=== PATIENT | female | born 1945 | race Caucasian/White ===

== ENCOUNTER 2020-03-04 12:23 | Inpatient (IN) | payer OTHER ==
[~2020-03-04] VITALS: Ht 160 cm; Wt 80.4 kg
[2020-03-04 13:45] LABS: Basophils # (auto) 0 10 ^3/uL (0-0.2); Basophils % (auto) 0.1 % (0.0-2.0); Eosinophils # (auto) 0 10 ^3/uL (0-0.8); Eosinophils % (auto) 0.2 % (0.0-7.0); Hematocrit 38.9 % (36.0-46.0); Hemoglobin 13.4 g/dL (12.2-16.2); Lymphocytes # (auto) 0.5 10 ^3/uL (0.4-5.4); Lymphocytes % (auto) 4.5 % (10.0-50.0); Mean Corpuscular Hemoglobin 30.9 pg (28.0-32.0); Mean Corpuscular Hgb Conc. 34.4 g/dL (32.0-36.0); Mean Corpuscular Volume 89.8 fL (80.0-100.0); Monocytes # (auto) 0.5 10 ^3/uL (0-1.3); Neutrophils # (auto) 11.1 10 ^3/uL (1.6-8.6); Neutrophils % (auto) 91.2 % (37.0-80.0); Nucleated Red Blood Cells % 0.1 %; Platelet Count (auto) 407 10^3/uL (140-450); Red Blood Cells 4.33 10^6/uL (4.0-5.20); Red Cell Distribution Width 14.5 % (11.8-14.3); White Blood Cell 12.1 10^3/uL (4.4-10.8)
[2020-03-04 13:59] LABS: Albumin 2.2 g/dL (3.4-5.0); Anion Gap 5 (5-15); Blood Urea Nitrogen 19 mg/dL (7-18); Calcium 8.5 mg/dL (8.5-10.1); Carbon Dioxide 25 mmol/L (21-32); Chloride 104 mmol/L (98-107); Glucose 137 mg/dL (74-106); Potassium 3.6 mmol/L (3.5-5.1); Sodium 134 mmol/L (136-145)
[2020-03-04 14:04] LABS: Alanine Aminotransferase 32 U/L (13-56); Alkaline Phosphatase 148 U/L (45-117); Aspartate Aminotransferase 37 U/L (15-37); BUN/Creatinine Ratio 20.9; Bilirubin, Total 0.8 mg/dL (0.2-1.0); GFR African American 78 mL/min; GFR Non-African American 65 mL/min; Total Protein 7.6 g/dL (6.4-8.2)
[2020-03-04 14:12] LABS: INR 1.13 (0.9-1.15); Partial Thromboplastin Time 28.3 sec (23.0-31.2)
[2020-03-04] MEDS ORDERED: DexAMETHasone SOD PHOS 10MG/1ML VIAL INJ IV ONE (14:45)
[2020-03-04] MEDS ORDERED: ASCORBIC ACID 500 MG TAB PO ONE (14:45)
[2020-03-04] MEDS ORDERED: ZINC SULFATE 220mg CAP or TAB PO ONE (14:45)
[2020-03-04] MEDS ORDERED: AZITHROMYCIN 500MG/ 250ML 250 ML IV ONE (14:45)
[2020-03-04] MEDS ORDERED: MORPHINE SULF INJ 2 MG/ML SYRINGE 1ML IV PRN ×2 (15:15→15:45)
[2020-03-04] MEDS ORDERED: NITROGLYCERIN 0.4 MG SL TAB SL PRN (15:15)
[2020-03-04] MEDS ORDERED: TEMAZEPAM 15 MG CAP PO PRN (15:45)
[2020-03-04] MEDS ORDERED: traMADol HCL 50 MG TAB PO PRN (15:45)
[2020-03-04] MEDS ORDERED: DEXTROSE (50%) 50ML SYRG IV PRN (15:45)
[2020-03-04] MEDS ORDERED: LACTULOSE 20Gm/30ML SOLN PO PRN (15:45)
[2020-03-04] MEDS ORDERED: ACETAMINOPHEN 500 MG TAB PO PRN (15:45)
[2020-03-04] MEDS ORDERED: ONDANSETRON HCL 4 MG/2 ML VIAL IV PRN (15:45)
[2020-03-04] MEDS: ACCU-CHEK COMFORT CURVE STRIP VI SCH ×2 (17:01→22:02)
[2020-03-04] MEDS: BUDESONIDE (INHALATION) 180 MCG IH IN SCH (20:40)
[2020-03-04] MEDS: ENOXAPARIN SOD 40 MG/0.4 ML SYRINGE SC SCH (22:01)
[2020-03-04] MEDS: FAMOTIDINE 20 MG TAB PO SCH (22:02)
[2020-03-05] MEDS ORDERED: LABETALOL HCL 5 MG/ML 4ML SYRINGE IV ONE (02:30)
[2020-03-05 06:23] LABS: Albumin 2.1 g/dL (3.4-5.0); Calcium 8.6 mg/dL (8.5-10.1); Potassium 3.7 mmol/L (3.5-5.1)
[2020-03-05 06:24] LABS: Basophils # (auto) 0 10 ^3/uL (0-0.2); Eosinophils # (auto) 0 10 ^3/uL (0-0.8); Hematocrit 36.1 % (36.0-46.0); Hemoglobin 12.9 g/dL (12.2-16.2); Lymphocytes # (auto) 0.4 10 ^3/uL (0.4-5.4); Lymphocytes % (auto) 5.2 % (10.0-50.0); Mean Corpuscular Hemoglobin 32.4 pg (28.0-32.0); Mean Corpuscular Hgb Conc. 35.8 g/dL (32.0-36.0); Mean Corpuscular Volume 90.3 fL (80.0-100.0); Monocytes # (auto) 0.3 10 ^3/uL (0-1.3); Monocytes % (auto) 3.8 % (0.0-12.0); Neutrophils # (auto) 6.8 10 ^3/uL (1.6-8.6); Nucleated Red Blood Cells % 0.1 %; Platelet Count (auto) 395 10^3/uL (140-450); Red Blood Cells 3.99 10^6/uL (4.0-5.20); White Blood Cell 7.5 10^3/uL (4.4-10.8)
[2020-03-05 06:28] LABS: BUN/Creatinine Ratio 31.5; Bilirubin, Total 0.8 mg/dL (0.2-1.0); Total Protein 7.1 g/dL (6.4-8.2)
[2020-03-05] MEDS: ACCU-CHEK COMFORT CURVE STRIP VI SCH ×4 (07:00→22:04)
[2020-03-05] MEDS ORDERED: cloNIDine HCL 0.1 MG TAB PO ONE (07:15)
[2020-03-05] MEDS: BUDESONIDE (INHALATION) 180 MCG IH IN SCH ×2 (08:08→19:36)
[2020-03-05] MEDS ORDERED: IVERMECTIN 3 MG TAB PO ONE (10:00)
[2020-03-05] MEDS: DexAMETHasone SOD PHOS 10MG/1ML VIAL INJ IV SCH (11:10)
[2020-03-05] MEDS: FAMOTIDINE 20 MG TAB PO SCH ×2 (11:11→21:43)
[2020-03-05] MEDS: levoFLOXacin 500MG 100 ML IV SCH (11:11)
[2020-03-05] MEDS: ENOXAPARIN SOD 40 MG/0.4 ML SYRINGE SC SCH ×2 (11:11→21:44)
[2020-03-05] MEDS: ZINC SULFATE 220mg CAP or TAB PO SCH (11:11)
[2020-03-05] MEDS: CHOLECALCIFEROL (VITD3) 2,000 UNIT CAP/TAB PO SCH (11:11)
[2020-03-05] MEDS: ASCORBIC ACID 1,000 MG TAB PO SCH (11:11)
[2020-03-05] MEDS ORDERED: REMDESIVIR PER PHARMACY 0 ML IV SCH (12:30)
[2020-03-05] MEDS ORDERED: REMDESIVIR 200 MG in NS 210ml LOADING DOSE ADULT IV ONE (15:00)
[2020-03-05 18:29] VITALS: BP 151/82
[2020-03-05] MEDS: ALBUTEROL SULF HFA 90MCG INH 200DOSE IN PRN (19:36)
[2020-03-06] VITALS: BP 159/86
[2020-03-06 06:08] LABS: BUN/Creatinine Ratio 34.2; Calcium 9.1 mg/dL (8.5-10.1); Potassium 4.2 mmol/L (3.5-5.1)
[2020-03-06 06:11] LABS: Bilirubin, Total 0.3 mg/dL (0.2-1.0); Total Protein 6.7 g/dL (6.4-8.2)
[2020-03-06] MEDS: ACCU-CHEK COMFORT CURVE STRIP VI SCH ×4 (06:48→22:00)
[2020-03-06] MEDS: BUDESONIDE (INHALATION) 180 MCG IH IN SCH ×2 (07:33→22:00)
[2020-03-06] MEDS: ALBUTEROL SULF HFA 90MCG INH 200DOSE IN PRN ×2 (07:33→22:31)
[2020-03-06 08:00] VITALS: BP 164/92
[2020-03-06] MEDS: ZINC SULFATE 220mg CAP or TAB PO SCH (09:47)
[2020-03-06] MEDS: levoFLOXacin 500MG 100 ML IV SCH (09:47)
[2020-03-06] MEDS: DexAMETHasone SOD PHOS 10MG/1ML VIAL INJ IV SCH (09:47)
[2020-03-06] MEDS: ASCORBIC ACID 1,000 MG TAB PO SCH (09:48)
[2020-03-06] MEDS: FAMOTIDINE 20 MG TAB PO SCH ×2 (09:48→21:52)
[2020-03-06] MEDS: CHOLECALCIFEROL (VITD3) 2,000 UNIT CAP/TAB PO SCH (09:48)
[2020-03-06] MEDS: ENOXAPARIN SOD 40 MG/0.4 ML SYRINGE SC SCH ×2 (09:48→21:52)
[2020-03-06 16:00] VITALS: BP 148/71
[2020-03-06] MEDS: REMDESIVIR 100mg 100 MG in SODIUM CHL 0.9% 230 ML IV SCH (16:06)
[2020-03-07] VITALS: BP 160/98
[2020-03-07] MEDS: ACCU-CHEK COMFORT CURVE STRIP VI SCH ×4 (06:46→21:38)
[2020-03-07] MEDS: BUDESONIDE (INHALATION) 180 MCG IH IN SCH ×2 (06:50→20:42)
[2020-03-07 08:00] VITALS: BP 160/89
[2020-03-07 08:08] LABS: Anion Gap 4 (5-15); Blood Urea Nitrogen 31 mg/dL (7-18); Carbon Dioxide 25 mmol/L (21-32); Chloride 110 mmol/L (98-107); Glucose 104 mg/dL (74-106); Potassium 4.1 mmol/L (3.5-5.1); Sodium 139 mmol/L (136-145)
[2020-03-07 08:09] LABS: Alanine Aminotransferase 33 U/L (13-56); Alkaline Phosphatase 117 U/L (45-117); Aspartate Aminotransferase 19 U/L (15-37); BUN/Creatinine Ratio 42.5; Bilirubin, Total 0.3 mg/dL (0.2-1.0); Calcium 8.4 mg/dL (8.5-10.1); GFR African American 101 mL/min; GFR Non-African American 83 mL/min; Total Protein 6.6 g/dL (6.4-8.2)
[2020-03-07] MEDS: DexAMETHasone SOD PHOS 10MG/1ML VIAL INJ IV SCH (09:28)
[2020-03-07] MEDS: ASCORBIC ACID 1,000 MG TAB PO SCH (09:29)
[2020-03-07] MEDS: levoFLOXacin 500MG 100 ML IV SCH (09:29)
[2020-03-07] MEDS: ZINC SULFATE 220mg CAP or TAB PO SCH (09:29)
[2020-03-07] MEDS: FAMOTIDINE 20 MG TAB PO SCH ×2 (09:29→21:38)
[2020-03-07] MEDS: CHOLECALCIFEROL (VITD3) 2,000 UNIT CAP/TAB PO SCH (09:30)
[2020-03-07] MEDS: ENOXAPARIN SOD 40 MG/0.4 ML SYRINGE SC SCH ×2 (09:30→21:38)
[2020-03-07] MEDS: REMDESIVIR 100mg 100 MG in SODIUM CHL 0.9% 230 ML IV SCH (15:20)
[2020-03-07 16:00] VITALS: BP 154/95
[2020-03-07] MEDS: ALBUTEROL SULF HFA 90MCG INH 200DOSE IN PRN (20:43)
[2020-03-08] VITALS: BP 147/82
[2020-03-08 06:04] LABS: Hematocrit 40.6 % (36.0-46.0); Hemoglobin 13.9 g/dL (12.2-16.2); Mean Corpuscular Hemoglobin 30.9 pg (28.0-32.0); Mean Corpuscular Hgb Conc. 34.2 g/dL (32.0-36.0); Mean Corpuscular Volume 90.4 fL (80.0-100.0); Platelet Count (auto) 382 10^3/uL (140-450); Red Blood Cells 4.49 10^6/uL (4.0-5.20); Red Cell Distribution Width 14.5 % (11.8-14.3); White Blood Cell 10.4 10^3/uL (4.4-10.8)
[2020-03-08] MEDS: ACCU-CHEK COMFORT CURVE STRIP VI SCH ×4 (06:20→21:44)
[2020-03-08 06:40] LABS: Albumin 2.1 g/dL (3.4-5.0); Calcium 8.7 mg/dL (8.5-10.1); Magnesium 2.2 mg/dL (1.6-2.6); Potassium 4.2 mmol/L (3.5-5.1)
[2020-03-08 06:42] LABS: Bilirubin, Total 0.3 mg/dL (0.2-1.0); Total Protein 6.4 g/dL (6.4-8.2)
[2020-03-08 06:45] LABS: Basophils % (manual) 0 (0.0-2.0); Blast Cells 0; Eosinophils % (manual) 0 (0-7); Myelocytes % 0; Promyelocytes % 0; Reactive Lymphocytes 0
[2020-03-08] MEDS: ALBUTEROL SULF HFA 90MCG INH 200DOSE IN PRN ×2 (07:39→18:59)
[2020-03-08] MEDS: BUDESONIDE (INHALATION) 180 MCG IH IN SCH ×2 (07:39→18:59)
[2020-03-08 08:00] VITALS: BP 166/100
[2020-03-08 08:13] LABS: Band Neutrophils % (manual) 7; Lymphocytes % (manual) 9 (10.0-50.0); Metamyelocytes % 1; Monocytes % (manual) 10 (0-12)
[2020-03-08] MEDS: ASCORBIC ACID 1,000 MG TAB PO SCH (09:34)
[2020-03-08] MEDS: levoFLOXacin 500MG 100 ML IV SCH (09:34)
[2020-03-08] MEDS: FAMOTIDINE 20 MG TAB PO SCH ×2 (09:34→21:43)
[2020-03-08] MEDS: ENOXAPARIN SOD 40 MG/0.4 ML SYRINGE SC SCH ×2 (09:34→21:44)
[2020-03-08] MEDS: ZINC SULFATE 220mg CAP or TAB PO SCH (09:34)
[2020-03-08] MEDS: DexAMETHasone SOD PHOS 10MG/1ML VIAL INJ IV SCH (09:34)
[2020-03-08] MEDS: CHOLECALCIFEROL (VITD3) 2,000 UNIT CAP/TAB PO SCH (09:34)
[2020-03-08] MEDS ORDERED: LISINOPRIL 10 MG TAB PO ONE (15:00)
[2020-03-08] MEDS: REMDESIVIR 100mg 100 MG in SODIUM CHL 0.9% 230 ML IV SCH (15:16)
[2020-03-08 16:00] VITALS: BP 166/104
[2020-03-08] MEDS ORDERED: hydrALAZINE HCL 20 MG/ML VL IV PRN (18:00)
[2020-03-08 20:22] VITALS: BP 133/84
[2020-03-08 23:52] VITALS: BP 157/94
[2020-03-09] MEDS: ACCU-CHEK COMFORT CURVE STRIP VI SCH ×3 (06:43→17:10)
[2020-03-09 08:00] VITALS: BP 147/93
[2020-03-09] MEDS: ALBUTEROL SULF HFA 90MCG INH 200DOSE IN PRN ×2 (08:04→20:51)
[2020-03-09] MEDS: BUDESONIDE (INHALATION) 180 MCG IH IN SCH ×2 (08:04→19:34)
[2020-03-09 08:13] LABS: Hematocrit 38.7 % (36.0-46.0); Hemoglobin 13.4 g/dL (12.2-16.2); Mean Corpuscular Hemoglobin 31.2 pg (28.0-32.0); Mean Corpuscular Hgb Conc. 34.7 g/dL (32.0-36.0); Mean Corpuscular Volume 89.9 fL (80.0-100.0); Platelet Count (auto) 290 10^3/uL (140-450); Red Cell Distribution Width 14.5 % (11.8-14.3)
[2020-03-09 08:23] LABS: BUN/Creatinine Ratio 42.2; Bilirubin, Total 0.3 mg/dL (0.2-1.0); Calcium 8.6 mg/dL (8.5-10.1); Magnesium 2.4 mg/dL (1.6-2.6); Total Protein 6.4 g/dL (6.4-8.2)
[2020-03-09 08:24] LABS: Basophils % (manual) 0 (0.0-2.0); Blast Cells 0; Metamyelocytes % 0; Myelocytes % 0; Promyelocytes % 0; Reactive Lymphocytes 0
[2020-03-09 09:04] LABS: Band Neutrophils % (manual) 1; Eosinophils % (manual) 1 (0-7); Lymphocytes % (manual) 10 (10.0-50.0); Monocytes % (manual) 15 (0-12)
[2020-03-09] MEDS: ZINC SULFATE 220mg CAP or TAB PO SCH (09:12)
[2020-03-09] MEDS: ASCORBIC ACID 1,000 MG TAB PO SCH (09:13)
[2020-03-09] MEDS: CHOLECALCIFEROL (VITD3) 2,000 UNIT CAP/TAB PO SCH (09:13)
[2020-03-09] MEDS: levoFLOXacin 500MG 100 ML IV SCH (09:14)
[2020-03-09] MEDS: ENOXAPARIN SOD 40 MG/0.4 ML SYRINGE SC SCH (09:14)
[2020-03-09] MEDS: FAMOTIDINE 20 MG TAB PO SCH (09:20)
[2020-03-09] MEDS: DexAMETHasone SOD PHOS 10MG/1ML VIAL INJ IV SCH (09:20)
[2020-03-09] MEDS ORDERED: LISINOPRIL 10 MG TAB PO SCH (10:00)
[2020-03-09 15:24] VITALS: BP 147/93
[2020-03-09 16:00] VITALS: BP 156/94
[2020-03-09] MEDS: REMDESIVIR 100mg 100 MG in SODIUM CHL 0.9% 230 ML IV SCH (16:28)
== END 2020-03-09 21:20 | disposition home or self-care (01) | DRG 177 ==
LOC: ER 12:23 → TELE 12:24 → TELE-WESTW 03-05 14:35
PROVIDERS: ADMIT Internal Medicine; ATTEND Internal Medicine
PROC: XW033E5 Introduction of Remdesivir Anti-infective into Peripheral Vein, Percutaneous Approach, New Technology Group 5 (ICD-10-PCS; principal; 2020-03-05)
DX: U07.1 COVID-19 (principal); J12.82 Pneumonia due to coronavirus disease 2019; J96.01 Acute respiratory failure with hypoxia; E87.1 Hypo-osmolality and hyponatremia; Z68.41 Body mass index [BMI] 40.0-44.9, adult; J98.11 Atelectasis; E46 Unspecified protein-calorie malnutrition; D72.810 Lymphocytopenia; R73.9 Hyperglycemia, unspecified; I10 Essential (primary) hypertension; E66.01 Morbid (severe) obesity due to excess calories; E78.5 Hyperlipidemia, unspecified; Z82.49 Family history of ischemic heart disease and other diseases of the circulatory system; Z90.710 Acquired absence of both cervix and uterus; E66.3 Overweight
CPT/HCPCS: 36415; 71045; 80053; 82728; 82962; 83036; 83605; 83735; 84484; 85007; 85025; 85027; 85379; 85610; 85730; 87040; 87426; 93005; 94640; 96365; 96375; G0378; J1100; J1956; J3490

== ENCOUNTER 2020-06-16 23:00 | Emergency (ER) | payer OTHER ==
[~2020-06-16] VITALS: Ht 162.6 cm; Wt 79.4 kg
[2020-06-16 23:30] VITALS: BP 175/93
== END 2020-06-17 04:04 | disposition home or self-care (01) ==
LOC: ER 23:00
DX: S63.591A Other specified sprain of right wrist, initial encounter (principal); I10 Essential (primary) hypertension; E78.5 Hyperlipidemia, unspecified; Z90.710 Acquired absence of both cervix and uterus; W01.0XXA Fall on same level from slipping, tripping and stumbling without subsequent striking against object, initial encounter; Y93.89 Activity, other specified; Y92.89 Other specified places as the place of occurrence of the external cause; Y99.8 Other external cause status
CPT/HCPCS: 73110

== ENCOUNTER → 2022-07-03 | Outpatient (CLI) | payer OTHER ==
[2022-07-03 12:23] LABS: Urine Bacteria NONE SEEN /hpf (None Seen); Urine Blood 1+ /uL (Negative); Urine Budding Yeast FEW /hpf (None Seen); Urine Hyaline Cast FEW /lpf (0 - 2); Urine Mucus FEW (None Seen); Urine Specific Gravity 1.019 (1.001-1.035); Urine WBC 880 /hpf (0 - 5); Urine WBC Clumps PRESENT /hpf (None Seen)
[2022-07-03 13:12] LABS: Magnesium 2.5 mg/dL (1.6-2.6); Potassium 4.2 mmol/L (3.5-5.1); Uric Acid 3.6 mg/dL (2.6-6.0)
[2022-07-03 13:19] LABS: Albumin 3.8 g/dL (3.4-5.0); BUN/Creatinine Ratio 15.2 (10.0-20.0); Bilirubin, Total 0.7 mg/dL (0.2-1.0); Calcium 9.5 mg/dL (8.5-10.1); Total Protein 7.6 g/dL (6.4-8.2)
== END | disposition home or self-care (01) ==
LOC: LAB 11:57
PROVIDERS: ATTEND Family Medicine
DX: Z00.00 Encounter for general adult medical examination without abnormal findings (principal); Z13.89 Encounter for screening for other disorder; E78.2 Mixed hyperlipidemia; I10 Essential (primary) hypertension; F32.9 Major depressive disorder, single episode, unspecified; Z68.29 Body mass index [BMI] 29.0-29.9, adult
CPT/HCPCS: 36415; 80053; 80061; 80198; 81001; 82306; 82607; 83036; 83540; 83735; 84550; 87086

== ENCOUNTER → 2022-07-07 | Outpatient (CLI) | payer OTHER | END | disposition home or self-care (01) | LOC: LAB 13:39 | PROVIDERS: ATTEND Family Medicine | DX: Z00.00 Encounter for general adult medical examination without abnormal findings (principal); Z13.89 Encounter for screening for other disorder; E32.9 Disease of thymus, unspecified; E78.2 Mixed hyperlipidemia; I10 Essential (primary) hypertension; Z68.29 Body mass index [BMI] 29.0-29.9, adult | CPT/HCPCS: 82270 ==

== ENCOUNTER 2024-07-14 10:50 | Outpatient (CLI) | payer OTHER ==
[2024-07-14 10:59] LABS: Urine Bacteria None Seen /hpf (None Seen)
[2024-07-14 11:35] LABS: Urine Blood 2+ /uL (Negative); Urine Clarity Turbid (Clear); Urine Color Light-Yellow (Yellow); Urine Mucus FEW (None Seen); Urine Protein, UAD TRACE (Negative); Urine Specific Gravity 1.025 (1.001-1.035); Urine Squamous Epithelial Cell FEW /hpf (<5); Urine Urobilinogen Normal (Negative); Urine WBC 256 /HPF (0-5); Urine pH 5.5 (5.0-9.0)
[2024-07-14 11:45] LABS: Alanine Aminotransferase 15 U/L (7-40); Albumin 4.4 g/dL (3.2-4.8); Alkaline Phosphatase 113 U/L (46-116); Anion Gap 10 (5-15); Aspartate Aminotransferase 17 U/L (13-40); BUN/Creatinine Ratio 14.2 (10.0-20.0); Bilirubin, Total 0.8 mg/dL (0.2-1.0); Blood Urea Nitrogen 19 mg/dL (9-23); Calcium 10.3 mg/dL (8.7-10.4); Carbon Dioxide 25 mmol/L (20-31); Cholesterol 146 mg/dL (< 200); HDL Cholesterol 50 mg/dL (40-59); LDL Cholesterol 73 mg/dL (< 100); Total Protein 7.2 g/dL (5.7-8.2)
[2024-07-14 11:49] LABS: Chloride 111 mmol/L (98-107); Glucose 133 mg/dL (74-106); Sodium 146 mmol/L (136-145); Triglycerides 163 mg/dL (< 150)
== END 2024-07-14 17:00 | disposition home or self-care (01) ==
LOC: LAB 10:50
PROVIDERS: ATTEND Family Medicine
DX: N18.31 Chronic kidney disease, stage 3a (principal); N39.0 Urinary tract infection, site not specified; F32.9 Major depressive disorder, single episode, unspecified; Z68.28 Body mass index [BMI] 28.0-28.9, adult
CPT/HCPCS: 36415; 80053; 80061; 81001; 82043; 87086